=== PATIENT | female | born 1980 | race African-American/Black ===

== ENCOUNTER 2017-11-02 12:12 | Emergency (ER) | payer OTHER ==
[~2017-11-02] VITALS: Ht 162.6 cm; Wt 76.2 kg
[~2017-11-02 12:12] MED LIST: AMBIEN10 MG PO; BUTORPHANO10 MG/1 ML; CLONAZEPAM1 MG PO; FERROUS SULFAT325 MG PO; FOLIC ACID1 MG PO; FUROSEMIDE40 MG PO; GABAPENTIN100 MG PO; HYDROXYCHLOROQ200 MG PO; HYDROXYZINE HCL25 MG PO; LEFLUNOMIDE20 MG PO; LISINOPRIL2.5 MG PO; NORCO 10-325 T1 EACH PO; NUCYNTA50 MG PO; PANTOPRAZOLE SO40 MG PO; QUETIAPINE FUM100 MG PO; TIZANIDINE HCL4 M1 PO; TRILEPTAL300 MG PO; XARELTO20 MG PO; ZOLPIDEM TARTRA10 MG PO
[2017-11-02] MEDS ORDERED: ONDANSETRON HCL INJ 2 MG/ML VIAL IV STA (12:54)
[2017-11-02] MEDS ORDERED: SODIUM CHLORIDE 0.9% 1000ML 1,000 ML IV SCH (13:00)
[2017-11-02] MEDS ORDERED: SODIUM CHLORIDE FLUSH 10 ML SYR INJ PRN (13:00)
[2017-11-02] MEDS ORDERED: ONDANSETRON HCL 4 MG ORAL DISINTEGRATING TAB PO ONE (15:15)
[2017-11-02 15:42] LABS: BASOPHILS % 0.3 % (0.0-1.0); EOSINOPHILS # (AUTO) 0.1 (0.0-0.4); EOSINOPHILS % 1.9 % (0.0-6.0); HEMATOCRIT 31.4 % (34.2-44.1); HEMOGLOBIN 10.9 g/dL (12.0-16.0); LYMPHOCYTES # (AUTO) 1.4 (1.0-3.2); LYMPHOCYTES % 43.3 % (18.0-39.1); MEAN CORPUSCULAR HEMOGLOBIN 28.2 pg (28-32); MEAN CORPUSCULAR HGB CONC 34.7 g/dL (31-35); MEAN CORPUSCULAR VOLUME 81.1 fL (81-99); MONOCYTES # (AUTO) 0.4 (0.2-0.8); MONOCYTES % 12.1 % (4.4-11.3); NEUTROPHILS # (AUTO) 1.4 (2.1-6.9); NEUTROPHILS % 42.4 % (38.7-80.0); PLATELET COUNT 329 x10e3/uL (140-360); RED BLOOD COUNT 3.87 x10e6/uL (3.6-5.1); RED CELL DISTRIBUTION WIDTH 14.6 % (11.7-14.4)
[2017-11-02 16:07] LABS: ALANINE AMINOTRANSFERASE 79 IU/L (0-55); ALBUMIN 3.7 g/dL (3.5-5.0); ALBUMIN/GLOBULIN RATIO 1.1 (0.8-2.0); ALKALINE PHOSPHATASE 169 IU/L (40-150); AMYLASE 70 U/L (25-125); ANION GAP 10.8 mmol/L (8-16); BLOOD UREA NITROGEN 8 mg/dL (7-26); BUN/CREATININE RATIO 11 (6-25); CALCIUM 9.1 mg/dL (8.4-10.2); CARBON DIOXIDE 25 mmol/L (22-29); CHLORIDE 112 mmol/L (98-107); EST GLOMERULAR FILTRATION RATE > 60 ML/MIN (60-); GLUCOSE 74 mg/dL (74-118); LIPASE 12 U/L (8-78); POTASSIUM 3.8 mmol/L (3.5-5.1); SODIUM 144 mmol/L (136-145)
[2017-11-02] MEDS ORDERED: DIATRIZOATE MEGL/DIATRIZOA SOD 30 ML BTL PO ONE (17:02)
[2017-11-02 17:58] LABS: BILIRUBIN,URINE NEGATIVE (NEGATIVE); CLARITY,URINE CLEAR (CLEAR); COLOR,URINE YELLOW (YELLOW); KETONES,URINE NEGATIVE (NEGATIVE); LEUKOCYTE ESTERASE ,URINE NEGATIVE (NEGATIVE); NITRITE,URINE NEGATIVE (NEGATIVE); PROTEIN,URINE DIPSTICK NEGATIVE (NEGATIVE); URINE UROBILINOGEN 0.2 mg/dL (0.2 - 1)
[2017-11-02 18:14] LABS: BACTERIA,URINE MODERATE /HPF; EPITHELIAL CELLS,URINE FEW /LPF; WBC,URINE (MAN) 0-5 /HPF (0-5)
--- NOTE | 2017-11-02 18:19 | Diagnostic Imaging Report ---
PROCEDURE: CT ABDOMEN AND PELVIS WITHOUT CONTRAST TECHNIQUE: The abdomen and pelvis were scanned utilizing a multidetector helical scanner from the diaphragm to the lesser trochanter after the oral administration of dilute Gastrografin. No IV contrast was administered per physician's request. Coronal and sagittal multiplanar reformations were obtained. COMPARISON: None. INDICATIONS: RIGHT FLANK PAIN, NAUSEA, VOMITTING, DIARRHEA FINDINGS: ABSENCE OF INTRAVENOUS CONTRAST DECREASES SENSITIVITY FOR DETECTION OF FOCAL LESIONS AND VASCULAR PATHOLOGY. LOWER THORAX: Linear opacities in the posterior medial left lower lobe with associated traction bronchiolectasis, consistent with scarring. Linear opacities in the posterior right lower lobe likely reflect subsegmental atelectasis or scarring. HEPATOBILIARY: Normal hepatic size and contour. No focal hepatic lesions. No intra-or extrahepatic biliary ductal dilatation. Cholecystectomy clips. SPLEEN: No splenomegaly. PANCREAS: No focal masses or ductal dilatation. ADRENALS: No adrenal nodules. KIDNEYS/URETERS: No renal or ureteral calculi. No hydronephrosis, hydroureter, or evidence of obstruction. Moderate cortical scarring in the interpolar region of the right kidney (for example series 2, image 35). Mild cortical scarring in the interpolar to inferior aspect of the left kidney (series 2, image 35). No other contour abnormalities. PELVIC ORGANS/BLADDER: Bladder is decompressed, but grossly unremarkable. No bladder calculi. Uterus is not visualized. No adnexal masses. PERITONEUM / RETROPERITONEUM: No free air or fluid. LYMPH NODES: No lymphadenopathy. VESSELS: IVC filter in place. GI TRACT: Postoperative changes in the stomach and small bowel, likely representing gastric bypass surgery. No bowel dilation or evidence of obstruction. No pericolonic inflammatory changes. The appendix is not visualized, however, there is no pericecal fat stranding/ inflammatory changes. BONES AND SOFT TISSUES: No acute bony abnormalities. Bilateral gluteal region. Calcified injection granulomas. IMPRESSION: 1. no renal, ureteral, or bladder calculi. No hydronephrosis or obstruction. 2. Bilateral renal cortical scarring, likely sequela of prior infection. 3. No bowel dilation or evidence of obstruction. Postoperative changes of gastric bypass surgery. Kobi Wesley M.D. Dictated by: Kobi Wesley M.D. on 11/02/2017 at 18:28 Electronically approved by: Kobi Wesley M.D. on 11/02/2017 at 18:28
== END 2017-11-02 18:51 | disposition home or self-care (01) ==
LOC: ER 12:12
DX: R10.11 Right upper quadrant pain (principal); R11.2 Nausea with vomiting, unspecified; I10 Essential (primary) hypertension; M32.9 Systemic lupus erythematosus, unspecified; Z98.84 Bariatric surgery status
CPT/HCPCS: 36415; 74176; 80053; 81001; 82150; 83690; 85025; 87086; 93005; J2405; J7030

== ENCOUNTER 2020-11-27 22:06 | Emergency (ER) | payer OTHER ==
[~2020-11-27] VITALS: Ht 162.6 cm; Wt 74.8 kg
[2020-11-27] MEDS ORDERED: SODIUM CHLORIDE 0.9% 1000ML 1,000 ML IV STA (22:22)
[2020-11-27] MEDS ORDERED: PROMETHAZINE 25MG/ NS 50ML (IV) IV ONE (22:30)
[2020-11-27] MEDS ORDERED: DEXAMETHASONE SOD PHOS INJ 4 MG/ML VIAL IV ONE (22:30)
[2020-11-27] MEDS ORDERED: DIPHENHYDRAMINE HCL INJ 50 MG/ML VIAL IV ONE (22:30)
[2020-11-27] MEDS ORDERED: FAMOTIDINE 20 MG/2 ML VIAL IV ONE ×2 (22:30→23:12)
[2020-11-27] MEDS ORDERED: DEXAMETHASONE SOD PHOS INJ 4 MG/ML VIAL ONE (23:11)
[2020-11-27] MEDS ORDERED: MORPHINE SULFATE INJ 4 MG/ML INJ 1ML ONE (23:12)
[2020-11-27] MEDS ORDERED: DIPHENHYDRAMINE HCL INJ 50 MG/ML VIAL ONE (23:12)
[2020-11-27] MEDS ORDERED: PROMETHAZINE HCL (IM) 25 MG/ML VIAL IM ONE (23:12)
[2020-11-27] MEDS ORDERED: SODIUM CHLORIDE 0.9% 1000ML 1,000 ML ONE (23:12)
[2020-11-28] MEDS ORDERED: MORPHINE SULFATE INJ 4 MG/ML INJ 1ML ONE ×2 (01:12→01:15)
== END 2020-11-28 01:48 | disposition home or self-care (01) ==
LOC: FSED 22:22
DX: G89.18 Other acute postprocedural pain (principal); M32.9 Systemic lupus erythematosus, unspecified; R53.1 Weakness; D68.61 Antiphospholipid syndrome; G89.29 Other chronic pain; Z86.718 Personal history of other venous thrombosis and embolism; Z98.84 Bariatric surgery status
CPT/HCPCS: 74176; 99283; J1100; J1200; J2270 ×2; J2550; J7030

== ENCOUNTER 2021-08-02 23:56 | Emergency (ER) | payer OTHER ==
[~2021-08-02] VITALS: Ht 162.6 cm; Wt 74.8 kg
== END 2021-08-03 00:25 | disposition home or self-care (01) ==
LOC: FSED 08-03 00:10
DX: M79.10 Myalgia, unspecified site (principal); G89.29 Other chronic pain; Z76.5 Malingerer [conscious simulation]; M32.9 Systemic lupus erythematosus, unspecified; K21.9 Gastro-esophageal reflux disease without esophagitis; D68.61 Antiphospholipid syndrome; Z98.84 Bariatric surgery status; Z86.718 Personal history of other venous thrombosis and embolism
CPT/HCPCS: 99282

== ENCOUNTER 2025-02-12 21:30 | Emergency (ER) | payer MEDICARE, OTHER ==
[~2025-02-12] VITALS: Ht 162.6 cm; Wt 81.6 kg
[2025-02-12 21:40] VITALS: PULSE 80; RESP 18; TEMP 98.4; O2SAT 99
== END 2025-02-12 22:35 | disposition left against medical advice (07) ==
LOC: FSED 21:35
DX: R10.84 Generalized abdominal pain (principal); M32.9 Systemic lupus erythematosus, unspecified